=== PATIENT | female | born 1965 | race Caucasian/White ===

== ENCOUNTER 2024-06-30 19:12 | Emergency (ER) | payer BC, SELFPAY ==
[2024-06-30 19:13] VITALS: BMI 35.5
[2024-06-30 19:49] VITALS: BP 137/90; PULSE 100; RESP 18; TEMP 36.7; O2SAT 99
--- NOTE | 2024-06-30 19:56 | PD.EDRME ---
Rapid Medical Screening Exam RME Arrival date/time: 06/30/24 19:12 Chief Complaint: Abdominal Pain Time Seen by Provider: 06/30/24 19:41 Vital signs: Vital Signs Temperature 98.1 F 06/30/24 19:49 Pulse Rate 100 06/30/24 19:49 Respiratory Rate 18 06/30/24 19:49 Blood Pressure 137/90 H 06/30/24 19:49 Pulse Oximetry (%) 99 06/30/24 19:49 Oxygen Delivery Method Room Air 06/30/24 19:49 RME Narrative: Intermittent RUQ pain, nausea x2 weeks. Hx cirrhosis and fatty liver
--- NOTE | 2024-06-30 19:57 | XR_ITS ---
Examination: Abdomen sonogram, Limited Date and time of exam: June 30, 2024 2022 hours INDICATIONS: Right upper abdominal pain beginning 2 weeks ago, diagnosis sclerosis Technique: Real-time mccullough scale transabdominal sonographic images of the upper abdomen obtained. Findings: Contracted gallbladder no gallstones Common bile duct 0.6 cm no stones Pancreatic head 3.0 cm Liver 11.5 cm lobular contour and no focal liver lesions Normal hepatopedal portal venous flow Patent IVC IMPRESSION: Negative for cholelithiasis, negative for cholecystitis Mild enlargement common bile duct 0.6 cm clinical correlation advised Cirrhosis
--- NOTE | 2024-06-30 19:57 | EKG_ITS ---
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
[2024-06-30 20:29] LABS: Collection Type, Urine Clean Catch
[2024-06-30 20:31] LABS: Basophils % (Auto) 1 % (0-2.5); Eosinophils # (Auto) 0.5 Thou/mm3 (0.0-0.5); Eosinophils % (Auto) 11 % (0-10); Hematocrit 39.7 % (36.0-46.0); Hemoglobin 13.5 g/dL (12.0-16.0); Immature Granulocytes % (Auto) 0 % (0-0); Immature Granulocytes Auto 0.01 Thou/mm3 (0.00-0.00); Lymphocytes % (Auto) 24 % (10-50); Mean Corpuscular Hemoglobin 30.6 pg (25.0-35.0); Mean Corpuscular Volume 90 fL (80-100); Monocytes # (Auto) 0.5 Thou/mm3 (0.0-0.8); Monocytes % (Auto) 11 % (0-12); Neutrophils # (Auto) 2.3 Thou/mm3 (1.8-7.7); Neutrophils % (Auto) 53 % (37-80); Nucleated Red Blood Cell % 0 /100 WBC (0); Platelet Count 192 Thou/mm3 (140-440); RDW Standard Deviation 43.2 fL (36.4-46.3); Red Blood Count 4.41 Miln/mm3 (4.00-5.20); White Blood Count 4.4 Thou/mm3 (3.6-11.0)
[2024-06-30 20:50] LABS: Alanine Aminotransferase 13 U/L (10-49); Albumin, Serum 4.5 gm/dL (3.5-5.0); Albumin/Globulin Ratio 1.4 (1.2-2.2); Alkaline Phosphatase 112 U/L (46-116); Anion Gap 7 (7-16); Aspartate Amino Transferase 23 U/L (0-34); BUN/Creatinine Ratio 14 Ratio (12-20); Bilirubin,Total 0.4 mg/dL (0.3-1.2); Blood Urea Nitrogen 17 mg/dL (9-23); Calcium 9.2 mg/dL (8.3-10.6); Calcium (Corrected) 9.2 mg/dL (8.5-10.1); Carbon Dioxide 27.5 mMol/L (20.0-31.0); Chloride 106 mMol/L (98-107); Creatinine (Component) 1.2 mg/dL (0.6-1.3); Estimated Creatinine Clearance 56.8 mL/min (>60); Globulin 3.3 gm/dL (2.3-3.5); Glucose 96 mg/dL (74-106); Lipase 46 U/L (12-53); Osmolality,Calculated 280 (275-295); Potassium 4.2 mMol/L (3.4-5.1); Sodium 140 mMol/L (136-145); Total Protein 7.8 gm/dL (5.7-8.2); Troponin I < 0.020 ng/mL (0.0-0.045); eGFR 52 See Note
[2024-06-30 20:59] LABS: Bilirubin,Urine Negative (Negative); Blood,Urine Negative (Negative); Clarity,Urine Turbid (Clear/Hazy); Color,Urine Yellow (Lt Yel-Yel); Glucose, Urine Trace (Negative); Hyaline Casts,Urine 2 /hpf (0-1); Ketones,Urine Negative (Negative); Leukocyte Esterase,Urine Negative (Negative); Nitrite,Urine Negative (Negative); PH,Urine 6.5 (5.0-7.0); Protein,Urine 1+ (Neg - Trace); RBC,Urine 22 /hpf (0-3); Specific Gravity,Urine 1.029 (1.001-1.035); Squamous Epithelial Cell,Urine 4 /hpf (0-5); WBC,Urine 1 /hpf (0-5)
--- NOTE | 2024-07-01 00:47 | EDNOTE_ITS ---
ED Abdominal Pain RME/HPI General Chief Complaint: Abdominal Pain Stated complaint: ABD PAIN / NAUSEA Time seen by provider: 06/30/24 19:41 Arrival date/time: 06/30/24 19:12 Source: patient, RN notes reviewed and old records reviewed Mode of arrival: ambulatory Limitations: no limitations RME / HPI RME / HPI narrative: 59yof presents to ED for intermittent RUQ pain, nausea x2 weeks. Hx cirrhosis and fatty liver. No fever, sob, cp, v/d or urinary symptoms reported. No medications or treatments since onset. Related Data Previous Rx's ?Medication ?Instructions ?Recorded dicyclomine 20 mg tablet 20 mg PO Q6HR PRN abdominal pain 07/01/24 #30 tabs famotidine 40 mg tablet (Pepcid) 40 mg PO QDAY #30 tab s 07/01/24 ibuprofen 600 mg tablet 600 mg PO Q6H PRN pain #30 t abs 07/01/24 ondansetron 4 mg disintegrating 4 mg PO Q6H PRN nausea and 07/01/24 tablet vomiting #10 tabs Allergies Allergy/AdvReac Type Severity Reaction Status Date / Time No Known Allergies Allergy Verified 06/30/24 19:15 Review of Systems Review of Systems Systems Reviewed: All systems reviewed, normal except as documented Constitutional Constitutional: Denies fever(s) Cardiovascular Cardiovascular: Denies chest pain and Denies dyspnea Respiratory Respiratory: Denies dyspnea Gastrointestinal Gastrointestinal: Reports abdominal pain, Denies loose stools, Reports nausea and Denies vomiting Genitourinary Genitourinary: Denies dysuria and Denies flank pain Past Medical History Past Medical History GASTROINTESTINAL: Positive Cirrhosis and Obesity Social History SMOKING STATUS: Current some day smoker SUBSTANCE USE: does not use ALCOHOL: Never ED Exam General Limitations: Present no limitations General appearance: Present alert and in no apparent distress Head Head exam: Present atraumatic and normocephalic Eye Eye exam: Present normal appearance, PERRL and EOMI ENT ENT exam: Present normal exam and mucous membranes moist Neck Neck exam: Present normal inspection and full ROM Chest Chest inspection: Present normal inspection and symmetric chest wall rise Respiratory Respiratory exam: Present normal lung sounds bilaterally; Absent respiratory distress Cardiovascular Cardiovascular exam: Present regular rate and normal rhythm Abdominal Exam Abdominal exam: Present soft and tenderness (RUQ, mild); Absent distention, guarding or rebound Extremities Exam Extremities exam: Present normal inspection and full ROM Back Exam Back exam: Absent CVA tenderness (R) or CVA tenderness (L) Neurological Exam Neurological exam: Present alert and oriented X3 Psychiatric Psychiatric exam: Present normal affect and normal mood Skin Skin exam: Present warm, dry, intact and normal color Course Quality Measures none Orders Category Date Time Status EKG (ED ONLY) *Do not use* NOW Care 06/30/24 19:57 Completed EKG (ED Only) Stat Exams 06/30/24 19:57 Draft US gall bladder Stat Exams 06/30/24 19:57 Completed CBC Stat Lab 06/30/24 20:10 Completed CMP [Comprehensive Metabolic Panel] Stat Lab 06/30/24 20:10 Completed Lipase Stat Lab 06/30/24 20:10 Completed Troponin I Stat Lab 06/30/24 20:10 Completed UA [Urinalysis] Stat Lab 06/30/24 20:21 Completed Vital Signs Vital signs: Vital Signs Temperature 98.1 F 06/30/24 19:49 Pulse Rate 100 06/30/24 19:49 Respiratory Rate 18 06/30/24 19:49 Blood Pressure 137/90 H 06/30/24 19:49 Pulse Oximetry (%) 99 06/30/24 19:49 Oxygen Delivery Method Room Air 06/30/24 19:49 Procedures -ED EKG Interpretation #1: Date of EK06/30/24 Rate: 98 Interpretation: Interpreted by me EKG Impression: Normal sinus rhythm, No acute ST-T changes, No ectopy, No ischemic changes, Normal QRS, Normal intervals and Normal axis Abdominal Pain MDM MDM Narrative MDM Narrative:: 59yof presents to ED for intermittent RUQ pain, nausea x2 weeks. Hx cirrhosis and fatty liver. No fever, sob, cp, v/d or urinary symptoms reported. No medications or treatments since onset. ED workup reassuring. Recommended pcp follow up if symptoms persist or worsen. Stable for dc, RTED precautions given. Patient data External records reviewed:: None (no prior visits) Clinical information provided by:: patient Social determinants that could affect healthcare access:: other (specify) (unemployed) Patient has the following chronic illnesses:: obesity, cirrhosis How is presenting disease/condition affected by chronic disease/condition?: exacerbated by Evaluation data The following diagnostics were reviewed and interpreted by me:: lab results, radiology exam(s) and EKG tracing(s) Lab and/or radiology exams considered but not ordered:: CT abd/pelvis Interpretation Summary: no leukocytosis LFTs and lipase wnl UA negative leuks GB ultrasound: no gallstones per my read Medications / Prescriptions Medications or Prescriptions considered but not ordered:: no antibiotics recommended at this time Medication administrations:: none Consultations Consultation(s) initiated? (list below): No Diagnosis Differential diagnosis abdominal pain: other (cholelithiasis, cholecystitis, constipation, pancreatitis, appendicitis) Most likely diagnosis given after review of the tests above:: RUQ abdominal pain Admission Indicated Admission indicated?: not indicated Admission Request Was there a request for admission?: No Disposition Plan Disposition Plan: Discharge Discharge Attestation Discharge Attestation: The patient and all family members were given an opportunity to ask questions and understood the discharge instructions. Discharge instructions specifically effects, indications for sooner follow up or return to the emergency department, and the expected course of current diagnosis. Patient condition: Stable Discharge Plan Plan Patient Disposition: HOME (Self Care) Patient condition on transfer: Stable Prescriptions/Referrals Prescriptions/Med Rec: New ondansetron 4 mg tablet,disintegrating 4 mg PO Q6H PRN (Reason: nausea and vomiting) Qty: 10 0RF dicyclomine 20 mg tablet 20 mg PO Q6HR PRN (Reason: abdominal pain) Qty: 30 0RF famotidine [Pepcid] 40 mg tablet 40 mg PO QDAY Qty: 30 0RF ibuprofen 600 mg tablet 600 mg PO Q6H PRN (Reason: pain) Qty: 30 0RF Referrals: No Primary/Family,Physician [Primary Care Provider] - In 1 week Problem List Clinical Impression: RUQ abdominal pain Patient/Caregiver Discharge Instructions Education Materials: Abdominal Pain Print Language: Azeri Stand Alone Forms: Zarina Award Info., Patient Portal Info Letter PA/ALEJANDRA Supervising Physician PA/ALEJANDRA Supervising Physician: Kristy
[2024-07-01 00:58] VITALS: BP 128/76; PULSE 86; RESP 16; TEMP 37; O2SAT 98
== END 2024-07-01 01:00 | disposition home or self-care (01) ==
PROVIDERS: Physician Assistant; Emergency Provider Emergency Medicine
DX: R10.11 Right upper quadrant pain (principal); K74.60 Unspecified cirrhosis of liver; K76.0 Fatty (change of) liver, not elsewhere classified; R11.0 Nausea
CPT/HCPCS: 36415; 76705; 80053; 81001; 83690; 84484; 85025; 93005; 99284